=== PATIENT | female | born 1935 | race Caucasian/White ===

== ENCOUNTER 2017-11-01 12:52 | Observation (INO) ==
[2017-11-01] MEDS ORDERED: 0.9 % Sodium Chloride 250 ML IVC ONE (13:35)
--- NOTE | 2017-11-01 13:35 | Emergency Department Note ---
Disposition Clinical Impression: UTI (urinary tract infection), Hypokalemia Disposition: Admitted As Inpatient Condition: Fair Referrals: Carlyle Cheung MD [Primary Care Provider] - Forms: ED Satisfaction Letter Headache HPI - General Chief Complaint: ED Headache Stated Complaint: Headache, fatigue Time Seen by Provider: 11/01/17 12:52 Source: family Mode of arrival: private vehicle Limitations: no limitations Nursing Notes Reviewed: Yes Vital Signs Reviewed: Yes - History of Present Illness HPI Narrative: Patient was brought in via private car, with complaints of headache or lethargy weakness. Patient here in the emergency room and was able to follow my commands , but has been not talking. According to the patient's daughter patient does not have headaches, and she was concerned the patient may have had a stroke. Patient apparently has a caregiver, who checks her blood pressure today and her pulse, and reported to the patient's daughter that she thought that the patient' s pulse was irregular. This was the reason the daughter was concerned the patient may have had a stroke. As to why the patient is nonverbal I am uncertain if this is related to patient being defiant, or whether there is something seriously going that I am not ascertaining. Pt Subjective Complaint: headache Onset (ago): unknown Time: 09:50 Onset description: gradual Location: frontal Pain Severity: moderate Pain Scale: 5 Quality: throbbing - Related Data Home Medications Medication Instructions Recorded Confirmed Bisoprolol/HCTZ 2.5/6.25 [Ziac] 1 each PO 1-2XD 05/04/15 11/01/17 Levothyroxine [Synthroid] 88 mcg PO 0630 05/04/15 11/01/17 Lisinopril [Zestril] 40 mg PO DAILY 05/04/15 11/01/17 Paroxetine [Paxil] 20 mg PO DAILY 05/04/15 11/01/17 Pravastatin Sodium [Pravachol] 20 mg PO DAILY 05/04/15 11/01/17 Aspirin [Lo-Dose Aspirin EC] 81 mg PO DAILY 11/01/17 11/01/17 Allergies Allergy/AdvReac Type Severity Reaction Status Date / Time Sulfa (Sulfonamide Allergy Rash Verified 11/01/17 12:55 Antibiotics) Limitations: ROS unobtainable due to patients medical condition (Patient is not answering questions, history is obtained from her daughter) Headache PMH - Past Medical History Medical history: Reports: hyperlipidemia, hypertension, thyroid disease, TIA, other Female Surgical History: Reports: appendectomy, cholecystectomy, hysterectomy ( One ovary removed), other (Mastectomy, left nephrectomy) Psychiatric history: Reports: depression - Social History Smoking Status: Heavy tobacco smoker Alcohol use: Reports: none Drug use: Reports: none Physical Exam - General Limitations: no limitations General appearance: in no apparent distress - Head Head exam: atraumatic, normocephalic, normal inspection - Eye Eye exam: Present: normal appearance, PERRL, EOMI - ENT ENT exam: normal exam, normal oropharynx, mucous membranes moist - Neck Neck exam: Present: normal inspection, full ROM, trachea midline - Chest Chest inspection: Present: normal inspection, symmetric chest wall rise - Respiratory Respiratory exam: Present: normal lung sounds bilaterally - Cardiovascular Cardiovascular exam: Present: regular rate, normal rhythm, normal heart sounds - Abdominal Exam Abdominal exam: Present: soft, Non-Tender. Absent: tenderness, distention, guarding, rebound, rigidity - Extremities Exam Extremities exam: Present: normal inspection, full ROM. Absent: tenderness, pedal edema - Expanded Lower Extremity Exam Hip/Pelvis exam: Present: normal inspection, full ROM Upper leg exam: Present: normal inspection, full ROM Knee exam: Present: normal inspection, full ROM Lower leg exam: Present: normal inspection, full ROM Ankle exam: Present: normal inspection, full ROM Foot/toe exam: Present: normal inspection, full ROM Neurovascular/Tendon exam: Absent: motor deficit, sensory deficit, tendon deficit - Back Exam Back exam: Present: normal inspection, full ROM. Absent: tenderness - Neurological Exam Neurological exam: Present: alert, CN II-XII intact - Psychiatric Psychiatric exam: Present: depressed, other (Patient is non-talkative) - Skin Skin exam: Present: warm, dry Course Vital Signs Temperature 98.2 F 11/01/17 12:57 Pulse Rate 73 11/01/17 12:57 Respiratory Rate 18 11/01/17 12:57 Blood Pressure 101/70 11/01/17 12:57 O2 Sat by Pulse Oximetry 93 11/01/17 12:57 Temperature 98.2 F 11/01/17 12:57 Pulse Rate 66 11/01/17 14:16 Respiratory Rate 16 11/01/17 14:16 Blood Pressure 121/67 11/01/17 14:16 O2 Sat by Pulse Oximetry 94 11/01/17 14:16 Oxygen Delivery Oxygen Delivery Nasal Cannula Headache - Differential Diagnosis Differential Diagnosis: Likely: migraine, tension headache, sinusitis - Medical Records Medical records reviewed: Yes I reviewed the patient's medical records. - Lab Data Result diagrams: 11/01/17 13:35 11/01/17 13:35 Lab Results 11/01/17 11/01/17 11/01/17 Range/Units 13:35 13:35 13:35 WBC 6.1 (4.3-11.1) K/mcL RBC 4.41 (3.82-4.97) M/mcL Hgb 14.0 (11.5-15.4) g/dL Hct 41.8 (35.3-44.9) % MCV 94.8 (83.0-100.0) fL MCH 31.7 (28.0-33.3) pg MCHC 33.5 (31.6-35.5) g/dL RDW 13.6 (11.5-14.5) % Plt Count 200 (140-400) K/mcL MPV 9.8 (9.4-12.4) fL Immature Gran % 0.3 (0-4) % Seg Neutrophils % 58.9 % Lymphocytes % 24.1 % Monocytes % 12.4 % Eosinophils % 3.6 % Basophils % 0.7 % Neutrophils # 3.6 (1.6-8.9) K/mcL Lymphocytes # 1.5 (0.6-4.6) K/mcL Monocytes # 0.8 (0.0-1.3) K/mcL Eosinophils # 0.2 (0.0-0.6) K/mcL Basophils # 0.0 (0.0-0.2) K/mcL PT 13.0 H (9.4-12.1) Seconds INR 1.2 APTT 33.6 (26.0-36.0) Seconds Sodium 137 (136-145) mEq/L Potassium 3.0 L (3.5-5.1) mEq/L Chloride 98 (98-107) mEq/L Carbon Dioxide 31 H (23-29) mEq/L BUN 14 (8-23) mg/dL Creatinine 1.09 (0.60-1.20) mg/dL Est GFR ( Amer) 58 L (> 60) Est GFR (Non-Af Amer) 48 L (> 60) BUN/Creatinine Ratio 13 (6-26) Glucose 103 (70-105) mg/dL Calculated Osmolality 285 (280-300) Calcium 9.4 (8.6-10.3) mg/dL Total Bilirubin 0.5 (0.3-1.0) mg/dL AST 17 (13-39) Units/L ALT 12 (7-52) Units/L Alkaline Phosphatase 95 (34-104) Units/L Ammonia (16-53) mcmol/L Troponin I (< 0.04) ng/mL Serum Total Protein 6.4 (6.4-8.9) g/dL Albumin 3.6 (3.5-5.7) g/dL Globulin 2.8 (2.4-3.5) g/dL Albumin/Globulin Ratio 1.3 (1.1-2.2) Urine Color (Yellow) Urine Clarity (Clear) Urine pH (5.0-8.0) pH Units Ur Specific [place] (1.010-1.025) Urine Protein (Neg-Trace) mg/dL Urine Glucose (UA) (Normal) mg/dL Urine Ketones (Negative) mg/dL Urine Blood (Negative) Urine Nitrite (Negative) Urine Bilirubin (Negative) Urine Urobilinogen (Normal) mg/dL Ur Leukocyte Esterase (Negative) Urine Microscopic RBC (0-3) per hpf Urine Microscopic WBC (0-3) per hpf Ur Squamous Epith Cells (None-Few) per lpf Urine Bacteria (None-Few) per hpf 11/01/17 11/01/17 11/01/17 Range/Units 13:35 13:35 14:12 WBC (4.3-11.1) K/mcL RBC (3.82-4.97) M/mcL Hgb (11.5-15.4) g/dL Hct (35.3-44.9) % MCV (83.0-100.0) fL MCH (28.0-33.3) pg MCHC (31.6-35.5) g/dL RDW (11.5-14.5) % Plt Count (140-400) K/mcL MPV (9.4-12.4) fL Immature Gran % (0-4) % Seg Neutrophils % % Lymphocytes % % Monocytes % % Eosinophils % % Basophils % % Neutrophils # (1.6-8.9) K/mcL Lymphocytes # (0.6-4.6) K/mcL Monocytes # (0.0-1.3) K/mcL Eosinophils # (0.0-0.6) K/mcL Basophils # (0.0-0.2) K/mcL PT (9.4-12.1) Seconds INR APTT (26.0-36.0) Seconds Sodium (136-145) mEq/L Potassium (3.5-5.1) mEq/L Chloride (98-107) mEq/L Carbon Dioxide (23-29) mEq/L BUN (8-23) mg/dL Creatinine (0.60-1.20) mg/dL Est GFR ( Amer) (> 60) Est GFR (Non-Af Amer) (> 60) BUN/Creatinine Ratio (6-26) Glucose (70-105) mg/dL Calculated Osmolality (280-300) Calcium (8.6-10.3) mg/dL Total Bilirubin (0.3-1.0) mg/dL AST (13-39) Units/L ALT (7-52) Units/L Alkaline Phosphatase (34-104) Units/L Ammonia 33 (16-53) mcmol/L Troponin I < 0.03 (< 0.04) ng/mL Serum Total Protein (6.4-8.9) g/dL Albumin (3.5-5.7) g/dL Globulin (2.4-3.5) g/dL Albumin/Globulin Ratio (1.1-2.2) Urine Color Yellow (Yellow) Urine Clarity Cloudy A (Clear) Urine pH 6.0 (5.0-8.0) pH Units Ur Specific [place] 1.015 (1.010-1.025) Urine Protein Negative (Neg-Trace) mg/dL Urine Glucose (UA) Normal (Normal) mg/dL Urine Ketones Negative (Negative) mg/dL Urine Blood Small H (Negative) Urine Nitrite Positive A (Negative) Urine Bilirubin Negative (Negative) Urine Urobilinogen 2.0 H (Normal) mg/dL Ur Leukocyte Esterase Moderate H (Negative) Urine Microscopic RBC 3-5 H (0-3) per hpf Urine Microscopic WBC 5-15 H (0-3) per hpf Ur Squamous Epith Cells Few (None-Few) per lpf Urine Bacteria Many H (None-Few) per hpf - Radiology Data Radiology results reviewed: Yes I reviewed the patient's radiology results. - EKG Data EKG attestation: Yes I reviewed and interpreted this EKG. EKG results narrative: EKG is a normal sinus rhythm EKG, patient has left ventricular hypertrophy, and what appears to be T-wave inversions in leads V3 all the way down through V6. I suspect this is more related to left ventricular heart strain. There is no change in comparison to her old EKG, of 522014 EKG shows normal: sinus rhythm, axis Rate: normal Rhythm: NSR [place]/QRS: left axis deviation Voltage: increased voltage throughout, c/w LVH
[2017-11-01 13:41] LABS: Basophils % 0.7 %; Eosinophils # 0.2 K/mcL (0.0-0.6); Eosinophils % 3.6 %; Hematocrit 41.8 % (35.3-44.9); Immature Granulocytes % 0.3 % (0-4); Lymphocytes # 1.5 K/mcL (0.6-4.6); Lymphocytes % 24.1 %; Mean Corpuscular HGB Conc 33.5 g/dL (31.6-35.5); Mean Corpuscular Hemoglobin 31.7 pg (28.0-33.3); Mean Corpuscular Volume 94.8 fL (83.0-100.0); Mean Platelet Volume 9.8 fL (9.4-12.4); Monocytes # 0.8 K/mcL (0.0-1.3); Monocytes % 12.4 %; Neutrophils # 3.6 K/mcL (1.6-8.9); Platelet Count 200 K/mcL (140-400); Red Blood Count 4.41 M/mcL (3.82-4.97); Red Cell Distribution Width 13.6 % (11.5-14.5); Segmented Neutrophils % 58.9 %
[2017-11-01 13:47] LABS: INR 1.2
[2017-11-01 13:49] LABS: Activated Partial Thrombo Time 33.6 Seconds (26.0-36.0)
[2017-11-01 13:58] LABS: Albumin 3.6 g/dL (3.5-5.7); Albumin/Globulin Ratio 1.3 (1.1-2.2); Bilirubin,Total 0.5 mg/dL (0.3-1.0); Calcium 9.4 mg/dL (8.6-10.3); Globulin 2.8 g/dL (2.4-3.5); Total Protein 6.4 g/dL (6.4-8.9)
[2017-11-01 14:16] LABS: Bilirubin,Urine Negative (Negative); Blood,Urine Small (Negative); Clarity,Urine Cloudy (Clear); Color,Urine Yellow (Yellow); Glucose,Urine (UA) Normal (Normal); Ketones,Urine Negative (Negative); Leukocyte Esterase,Urine Moderate (Negative); Nitrite,Urine Positive (Negative); Protein,Urine Negative (Neg-Trace); Specific Gravity,Urine 1.015 (1.010-1.025)
[2017-11-01 14:24] LABS: Bacteria,Urine Many per hpf (None-Few); Squamous Epithelial Cell,Urine Few per lpf (None-Few)
[2017-11-01] MEDS ORDERED: 0.9 % Sodium Chloride 500 ML IVC SCH ×2 (14:45→15:49)
[2017-11-01] MEDS ORDERED: cefTRIAXone 2,000 MG in Water for inj. (sterile) 20 ML 20 ML IVPB SCH (15:00)
[2017-11-01] MEDS ORDERED: Naloxone 0.4 MG/ML INJ IVP PRN (15:49)
--- NOTE | 2017-11-01 19:10 | Internal Med History&Physical ---
Date of Encounter: 11/01/17 Time of Encounter: 18:30 Assessment and Plan (1) Headache Current visit: Yes Status: Acute Now resolved. Head CT in emergency room was unremarkable. Will observe without further workup at this time. Qualifiers: Headache type: unspecified Headache chronicity pattern: unspecified pattern Intractability: not intractable Qualified Code(s): R51 - Headache (2) UTI (urinary tract infection) Current visit: Yes Status: Acute She has been started on Rocephin. Will add lactobacillus. Qualifiers: Urinary tract infection type: site unspecified Hematuria presence: with hematuria Qualified Code(s): N39.0 - Urinary tract infection, site not specified; R31.9 - Hematuria, unspecified; R31.9 - Hematuria, unspecified (3) Hypokalemia Current visit: Yes Status: Acute She has been given supplement potassium IV through emergency room. Will recheck labs tonight. Internal Medicine - H&P: HPI Chief complaint: Headache Admitted From: Emergency Dept Plans for Post Hospital Care: Home History of present illness: Ms. Richards is a 82 year old female who was brought to emergency room after she awakened from a nap approximately 11 AM and complained of severe headache. She had normal vital signs and there was no neurologic deficit noted by home care personnel. Her PCP Dr. Cheung was contacted and he recommended she go to emergency room. She was evaluated in emergency room and found to have hypokalemia and possible UTI. She was admitted to [facility] floor for ongoing care needs. She has dementia and cannot supply history. Her family reports she has had "mini strokes" in the past most recently approximately 2013. She takes 81 mg aspirin daily. She has been diagnosed with vascular dementia. She has not had seizures or other large distribution strokes. Past Med Surg Social Fam HX - Past Medical History Medical history: hyperlipidemia, hypertension, thyroid disease, TIA, other Psychiatric history: depression - Past Surgical History Surgical History: appendectomy, cholecystectomy, hysterectomy, other - Social History Smoking Status: Heavy tobacco smoker Packs per day: 1 Smokeless Tobacco Status: No Alcohol use: none Drug use: none Internal Medicine - H&P: Meds Bisoprolol/HCTZ 2.5/6.25 [Ziac] 1 each PO 1-2XD 05/04/15 [History] Levothyroxine [Synthroid] 88 mcg PO 0630 05/04/15 [History] Lisinopril [Zestril] 40 mg PO DAILY 05/04/15 [History] Paroxetine [Paxil] 20 mg PO DAILY 05/04/15 [History] Pravastatin Sodium [Pravachol] 20 mg PO DAILY 05/04/15 [History] Aspirin [Lo-Dose Aspirin EC] 81 mg PO DAILY 11/01/17 [History] 3 Allergy/AdvReac Type Severity Reaction Status Date / Time Sulfa (Sulfonamide Allergy Rash Verified 11/01/17 12:55 Antibiotics) All Systems PM: A 10-system review of systems was performed and is negative for pertinent findings except as documented above in the HPI. Review of systems: Review of systems is obtained from family members since the patient cannot give additional history. Gen.: Her weight has been stable the past months Cardiovascular: She has history of hypertension but no AK heart failure angina DVT or pulmonary embolus Respiratory: She smoked since approximately age 20 up to 2 packs per day. She has not been diagnosed with COPD by PFTs. She does not use home oxygen. GI: She has had cholecystectomy and appendectomy. 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 Family was unaware she had CK D. There is no history of kidney or bladder disorders otherwise Neurologic: As per history of present illness Endocrine: She has hypothyroidism and hyperlipidemia but no diabetes. Hematology/oncology: She was diagnosed with breast cancer 2005 and had curative left mastectomy. She was diagnosed with ovarian cancer 2014 and had bilateral oophorectomy followed by XRT. She had previously had KIANA. She has not had other malignancies or anemia documented. Psychiatric: She has anxiety but no significant depression or other mental health issues [place] skeletal: She has DJD but no known gout or other bone joint or muscle disorders. - Constitutional Vitals: Temp Pulse Resp BP Pulse Ox 98.6 F 64 18 109/58 97 11/01/17 15:42 11/01/17 15:42 11/01/17 15:42 11/01/17 15:42 11/01/17 15:42 Exam: Gen.: She is a well-developed well-nourished female lying comfortably in bed who appears in no acute distress at present time. She denies headache or dyspnea but does complain of slight pain in her neck. HEENT: Head is atraumatic and normal cephalic. Eyes: EOMI. There is no scleral icterus. Mouth: Mucosa is moist. Neck: Supple and nontender. There is no thyromegaly or adenopathy noted. Heart: Regular without murmurs gallops or ectopics Lungs: No wheezes or crackles are heard. Abdomen: Soft and nontender. No masses or guarding are noted. Extremities: There is no cyanosis edema or clubbing noted. Dorsalis pedis and posttibial pulses are trace palpable bilaterally. She has mild DJD changes of her hands. Neurologic: Mental status: She does not answer questions. She follows a few commands. Cranial nerves: Smile is symmetric. Forehead wrinkles bilaterally. Tongue protrudes midline. EOMI. Motor: There is no pronator drift. Cerebellar : Finger to nose is intact bilaterally. Skin: Warm and dry Internal Med - H&P Results - Labs CBC & Chem 7: 11/01/17 13:35 11/01/17 13:35
--- NOTE | 2017-11-01 21:08 | Electrocardiograph Report ---
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
[2017-11-02 03:31] LABS: BUN/Creatinine Ratio 13 (6-26); Blood Urea Nitrogen 13 mg/dL (8-23); Calcium 8.8 mg/dL (8.6-10.3); Carbon Dioxide 31 mEq/L (23-29); Chloride 100 mEq/L (98-107); Glucose 139 mg/dL (70-105); Magnesium 1.7 mg/dL (1.6-2.6); Osmolality,Calculated 286 (280-300); Potassium 3.2 mEq/L (3.5-5.1); Sodium 137 mEq/L (136-145); eGFR For African Americans > 60 (> 60); eGFR For Non-African Americans 54 (> 60)
[2017-11-02 07:12] VITALS: BP 97/59
[2017-11-02] MEDS ORDERED: Aspirin Enteric Coated 81 MG Tablet PO SCH (09:00)
[2017-11-02] MEDS ORDERED: Bisoprolol/HCTZ 10/6.25 TABLET PO SCH (09:00)
[2017-11-02] MEDS ORDERED: Lisinopril 20 MG TABLET PO SCH (09:00)
--- NOTE | 2017-11-02 09:15 | Discharge Summary ---
Date of Encounter: 11/02/17 Time of Encounter: 09:00 - Discharge Diagnosis (1) Headache Priority: Primary Status: Resolved Qualifiers: Headache type: unspecified Headache chronicity pattern: unspecified pattern Intractability: not intractable Qualified Code(s): R51 - Headache (2) UTI (urinary tract infection) Priority: Secondary Status: Acute Qualifiers: Urinary tract infection type: site unspecified Hematuria presence: with hematuria Qualified Code(s): N39.0 - Urinary tract infection, site not specified; R31.9 - Hematuria, unspecified; R31.9 - Hematuria, unspecified (3) Hypokalemia Priority: Secondary Status: Acute Hospital course: Ms. Richards is a 82 year old female who was brought to emergency room after she awakened from a nap approximately 11 AM and complained of severe headache. She had normal vital signs and there was no neurologic deficit noted by home care personnel. Her PCP Dr. Cheung was contacted and he recommended she go to emergency room. She was evaluated in emergency room and found to have hypokalemia and possible UTI. She was admitted to [facility] for ongoing care needs. Initial orders were written by the emergency room physician. I saw her the afternoon of November 01 and performed a history and physical. By the time I saw her she stated her headache had resolved. Head CT in emergency room was unremarkable. No further workup was done and she remained pain-free. She was started on Rocephin empirically for UTI. Lactobacillus was added. Urine culture report was pending at time of discharge. She will be discharged on Ceftin 500 mg twice a day with lactobacillus as empiric treatment. Dr. Cheung can follow-up on this. Supplemental potassium was given and her level levy to 3.2 by day of discharge. She will be given additional potassium prior to discharge and continue on oral potassium supplement at home. She will follow with her PCP Dr. Carlyle Cheung within 1 week. - Time Spent with Patient Total time spent providing and/or coordinating discharge services: - Discharge Medications Prescriptions: Cefuroxime PO [Ceftin] 500 mg PO Q12HR #6 tablet Lactobacillus [Culturelle] 1 each PO BID #6 cap.sprink Potassium Chloride 10 meq PO DAILY #30 tab.er.prt Home Medications: Levothyroxine [Synthroid] 88 mcg PO 0630 05/04/15 [History] Lisinopril [Zestril] 40 mg PO DAILY 05/04/15 [History] Paroxetine [Paxil] 20 mg PO DAILY 05/04/15 [History] Pravastatin Sodium [Pravachol] 20 mg PO DAILY 05/04/15 [History] Aspirin [Lo-Dose Aspirin EC] 81 mg PO DAILY 11/01/17 [History] Bisoprolol/HCTZ 2.5/6.25 [Ziac 2.5/6.25] 1 each PO DAILY #0 11/02/17 [Rx] Cefuroxime PO [Ceftin] 500 mg PO Q12HR #6 tablet 11/02/17 [Rx] Lactobacillus [Culturelle] 1 each PO BID #6 cap.sprink 11/02/17 [Rx] Potassium Chloride 10 meq PO DAILY #30 tab.er.prt 11/02/17 [Rx] Allergies/Adverse Reactions: 3 Allergy/AdvReac Type Severity Reaction Status Date / Time Sulfa (Sulfonamide Allergy Rash Verified 11/01/17 12:55 Antibiotics) Date of admission: 11/01/17 14:53 Primary care physician: Carlyle Cheung MD Consults: 11/01/17 17:03 Consult to Industrial Conveyor Belt Repairer [CONS] Routine Reason for SW Consult: [facility] 20/03 care current - Constitutional Vitals: Temp Pulse Resp BP Pulse Ox 98.4 F 69 18 97/59 91 11/02/17 07:11 11/02/17 07:11 11/02/17 07:11 11/02/17 07:11 11/02/17 07:11 - Patient Status Disposition: Home, Self-Care Condition: Fair Overall status at discharge: patient is progressing back to baseline - Discharge Instructions Follow Up With: Carlyle Cheung MD [Primary Care Provider] - 1 week - Diet and Activity Activity: resume usual activities as tolerated Diet: advance to your usual diet
--- NOTE | 2017-11-02 09:57 | Physician Discharge Referral ---
Home Health/Hosp Referral Info Transfer to: Home Health Attending Provider: Lang Provider in Charge Post Discharge: PCP (Carlyle Cheung M.D.) - Diagnosis (1) Headache Priority: Primary Status: Resolved (2) UTI (urinary tract infection) Priority: Secondary Status: Acute (3) Hypokalemia Priority: Secondary Status: Acute - Respiratory Orders Smoking Cessation: Smoking cessation has been advised. For more information, call the [place] Tobacco Quit Line at 8-304-DNWQ-NOW. - Activity Activity Orders: Ambulate - Services Needed Following services are medically necessary services: Nursing, Home Health Aide, Physical Therapy, Occupational Therapy - Transfer Medications Prescriptions: Cefuroxime PO [Ceftin] 500 mg PO Q12HR #6 tablet Lactobacillus [Culturelle] 1 each PO BID #6 cap.sprink Potassium Chloride 10 meq PO DAILY #30 tab.er.prt Home Medications: Levothyroxine [Synthroid] 88 mcg PO 0630 05/04/15 [History] Lisinopril [Zestril] 40 mg PO DAILY 05/04/15 [History] Paroxetine [Paxil] 20 mg PO DAILY 05/04/15 [History] Pravastatin Sodium [Pravachol] 20 mg PO DAILY 05/04/15 [History] Aspirin [Lo-Dose Aspirin EC] 81 mg PO DAILY 11/01/17 [History] Bisoprolol/HCTZ 2.5/6.25 [Ziac 2.5/6.25] 1 each PO DAILY #0 11/02/17 [Rx] Cefuroxime PO [Ceftin] 500 mg PO Q12HR #6 tablet 11/02/17 [Rx] Lactobacillus [Culturelle] 1 each PO BID #6 cap.sprink 11/02/17 [Rx] Potassium Chloride 10 meq PO DAILY #30 tab.er.prt 11/02/17 [Rx] Allergies/Adverse Reactions: 3 Allergy/AdvReac Type Severity Reaction Status Date / Time Sulfa (Sulfonamide Allergy Rash Verified 11/01/17 12:55 Antibiotics) Certification: Further, I certify that my clinical findings support that this patient is homebound (i.e. absences from home require considerable and taxing effort and are for medical reasons or restoration services or infrequently or short duration when for other reasons) because: Homebound Reason: Leaving home requires considerable and taxing effort due to condition (Dementia, DJD) Attestation: My signature below is to certify that this patient is under my care and that I, or nurse practitioner, or a physician's assistant branch manager working with me, has a face-to -face encounter with this patient.
[2017-11-02] MEDS ORDERED: cefTRIAXone 2,000 MG in Water for inj. (sterile) 20 ML IVP SCH (13:00)
== END 2017-11-02 10:30 | disposition home health service (06) ==
LOC: EMEROOPIK 12:52 → INPPIK 12:52
PROVIDERS: ADMIT Internal Medicine; ATTEND Internal Medicine

== ENCOUNTER 2018-07-16 16:32 | Observation (INO) ==
[2018-07-16] MEDS ORDERED: methylPREDNISolone 125 MG/2 ML VIAL IVP ONE (16:47)
[2018-07-16] MEDS ORDERED: Ipratropium/Albuterol Neb 3 ML IH ONE (16:47)
--- NOTE | 2018-07-16 17:16 | Emergency Department Note ---
Disposition Clinical Impression: Palpitations, Elevated d-dimer Pneumonia Qualifiers: Pneumonia type: due to unspecified organism Laterality: right Lung location: lower lobe of lung Qualified Code(s): J18.1 - Lobar pneumonia, unspecified organism Disposition: Admitted As Inpatient Condition: Good Instructions: Palpitations (ED) Time of Disposition: 17:51 (Acccepted by Dr Laughlin) Weakness HPI - General Stated complaint: LOW HEART RATE, COLD SWEATS Time Seen by Provider: 07/16/18 16:35 Source: patient Mode of arrival: ambulatory Nursing Notes Reviewed: Yes Vital Signs Reviewed: Yes - History of Present Illness HPI Narrative: Patient is a pleasant 83 yo F with past medical history significant for HTN, CA, COPD, CAD, Dyslipidemia and COPD who is presenting to [facility] Emergency Room with a chief complaint off possible low HR. Her home nurse noticed flactuating of her heart rate between 110 to 42. Pt remained asymptomatic during that event. She takes clonidine for BP. Patient currently has no symptoms but states she occasionally get dizzy. denies any fever, chills or night sweats. Pt also denies any eye pain or visual disturbances. There is no sore throat, nasal drainages or facial congestion. There is no chest pain, palpitations or racing heart. Pt also denies any shortness of breath, cough or chest congestion. There is no abdominal pain, nausea, vomiting or diarrhea. There is no urgency, frequency or dysuria. There is no muskulo-skeletal pain, arthralgia or back pain. Patient also denies any rash, edema or pruritus. There is no neurological manifestations, no headache, no vertigo or weakness. The patient also denies any anxiety, depression, hallucinations and has no homicidal or suicidal ideations. There is no polyuria, polydipsia or recent weight change. There is no easy bruising or bleeding. Review of other systems is otherwise negative except above. Pt Subjective Complaint: other - Related Data Home Medications Medication Instructions Recorded Confirmed Levothyroxine [Synthroid] 88 mcg PO 0630 05/04/15 12/02/17 Paroxetine [Paxil] 20 mg PO DAILY 05/04/15 12/02/17 Pravastatin Sodium [Pravachol] 20 mg PO DAILY 05/04/15 12/02/17 Aspirin [Lo-Dose Aspirin EC] 81 mg PO DAILY 11/01/17 12/02/17 Cyanocobalamin (Vitamin B-12) 1,000 mcg PO DAILY 12/02/17 12/02/17 [B-12] cloNIDine HCl [Clonidine HCl] 0.2 mg PO DAILY 07/16/18 07/16/18 Previous Rx's Medication Instructions Recorded Potassium Chloride 10 meq PO DAILY #30 tab.er.prt 11/02/17 Benzonatate [Tessalon] 200 mg PO TID PRN #9 capsule 12/31/17 predniSONE [Prednisone] 50 mg PO DAILY #4 tablet 12/31/17 Allergies Allergy/AdvReac Type Severity Reaction Status Date / Time Sulfa (Sulfonamide Allergy Rash Verified 12/30/17 22:14 Antibiotics) All systems ED: reviewed and negative except as stated. Review of Systems: As Per HPI Constitutional: Denies: fever, chills, weakness, weight change Eyes: Denies: eye pain, eye discharge, vision change ENT ED: Denies: ear pain, throat pain, dental pain, hearing loss, epistaxis, congestion, dysphagia Cardiovascular: Reports: palpitations. Denies: chest pain, dyspnea on exertion, edema, syncope Respiratory: Denies: cough, dyspnea, wheezes, hemoptysis, stridor Gastrointestinal: Denies: abdominal pain, nausea, vomiting, diarrhea, constipation, hematemesis, melena, hematochezia Genitourinary: Denies: dysuria, frequency, hematuria, discharge Musculoskeletal: Denies: back pain, neck pain, arthralgia, myalgia Integumentary: Denies: rash, abrasion, lesions Neurological: Denies: headache, weakness, numbness, paresthesias, confusion, abnormal gait, vertigo Psychiatric: Denies: anxiety, depression, suicidal thoughts, homicidal thoughts, auditory hallucinations, visual hallucinations Endocrine: Denies: fatigue Hematological/Lymphatic: Denies: easy bleeding, easy bruising Allergic/Immunologic: Denies: facial swelling, urticaria Past Medical History - Past Medical History Medical history: Reports: cancer, COPD, dementia, hyperlipidemia, hypertension, renal disease, thyroid disease, TIA, other Surgical history: Reports: appendectomy, breast surgery (Left mastectomy), cholecystectomy, hysterectomy, other (Nephrectomy) Psychiatric history: Reports: depression - Social History Smoking Status: Heavy tobacco smoker Smokeless Tobacco Status: No Alcohol use: Reports: none Drug use: Reports: none Physical Exam - General Limitations: no limitations General appearance: alert, in no apparent distress - Head Head exam: atraumatic, normocephalic, normal inspection - Eye Eye exam: Present: normal appearance, PERRL, EOMI - Expanded Eye Exam Pupils: Left: reactive - ENT ENT exam: normal exam, normal oropharynx, mucous membranes moist - Expanded ENT Exam External ear exam: Present: normal external inspection Mouth exam: Present: normal external inspection Teeth exam: Present: normal inspection Throat exam: Present: normal inspection - Neck Neck exam: Present: normal inspection, full ROM, trachea midline - Chest Chest inspection: Present: normal inspection, symmetric chest wall rise - Respiratory Respiratory exam: Present: normal lung sounds bilaterally, wheezes, other (Diminshed air entry post) - Cardiovascular Cardiovascular exam: Present: regular rate, normal rhythm, normal heart sounds - Abdominal Exam Abdominal exam: Present: soft, Non-Tender. Absent: tenderness, distention, guarding, rebound, rigidity - Extremities Exam Extremities exam: Present: normal inspection, full ROM. Absent: tenderness, pedal edema - Expanded Upper Extremity Exam Shoulder exam: Present: normal inspection, full ROM Arm exam: Present: normal inspection, full ROM Elbow exam: Present: normal inspection, full ROM Forearm/Wrist exam: Present: normal inspection, full ROM Hand exam: Present: normal inspection, full ROM Vascular exam: Normal: capillary refill, radial pulse - Expanded Lower Extremity Exam Hip/Pelvis exam: Present: normal inspection, full ROM Upper leg exam: Present: normal inspection, full ROM Knee exam: Present: normal inspection, full ROM Lower leg exam: Present: normal inspection, full ROM Ankle exam: Present: normal inspection, full ROM Foot/toe exam: Present: normal inspection, full ROM Neurovascular/Tendon exam: Absent: motor deficit, sensory deficit, tendon deficit - Back Exam Back exam: Present: normal inspection, full ROM. Absent: tenderness - Neurological Exam Neurological exam: Present: alert, oriented X3 - Expanded Neurological Exam Patient oriented to: Present: person, place, time Coma Scale Eye Opening: Spontaneous Coma Scale Motor Response: Obeys Commands Coma Scale Verbal Response: Oriented Coma Scale Total: 15 - Psychiatric Psychiatric exam: Present: normal affect, normal mood - Skin Skin exam: Present: warm, dry, intact, normal color Weakness - MDM Narrative Medical decision making narrative: Pt has an elevated D Dimer with normal level of borderline pulse Ox has long standing COPD and continues to smoke. Her HR in 80s and pulse Ox 92. In the past her D Dimer was 900 and currently 1000 so has no higher suspicion for PE but will need to be admitted for arrhythmia monitoring. - Differential Diagnosis Differential Diagnosis: Likely: dehydration, medication effect, metabolic, thyroid/endocrine disorder - Medical Records Medical records reviewed: Yes I reviewed the patient's medical records. - Lab Data Lab results reviewed: Yes I reviewed the patient's lab results. - Radiology Data Radiology results reviewed: Yes I reviewed the patient's radiology results. XR/XR chest 1V portable IMPRESSION: Right basilar atelectasis or pneumonia. New elevation of the right hemidiaphragm. Follow-up to resolution recommended to ensure the absence of an underlying pulmonary nodule. - EKG Data EKG attestation: Yes I reviewed and interpreted this EKG. EKG shows normal: sinus rhythm Rhythm: PAC's [place]/QRS: normal
[2018-07-16 17:17] LABS: Troponin I < 0.03 ng/mL (< 0.04)
[2018-07-16 17:17] LABS: Basophils % 0.6 %; Eosinophils # 0.2 K/mcL (0.0-0.6); Eosinophils % 3.2 %; Hematocrit 43.1 % (35.3-44.9); Hemoglobin 14.3 g/dL (11.5-15.4); Immature Granulocytes % 0.3 % (0-4); Lymphocytes # 1.6 K/mcL (0.6-4.6); Lymphocytes % 24.6 %; Mean Corpuscular HGB Conc 33.2 g/dL (31.6-35.5); Mean Corpuscular Hemoglobin 31.7 pg (28.0-33.3); Mean Corpuscular Volume 95.6 fL (83.0-100.0); Mean Platelet Volume 9.4 fL (9.4-12.4); Monocytes # 0.7 K/mcL (0.0-1.3); Platelet Count 185 K/mcL (140-400); Red Blood Count 4.51 M/mcL (3.82-4.97); Red Cell Distribution Width 13.8 % (11.5-14.5); Segmented Neutrophils % 61.3 %
[2018-07-16 17:18] LABS: Alanine Aminotransferase 14 Units/L (7-52); Albumin 3.8 g/dL (3.5-5.7); Albumin/Globulin Ratio 1.2 (1.1-2.2); Alkaline Phosphatase 97 Units/L (34-104); Aspartate Amino Transferase 17 Units/L (13-39); BUN/Creatinine Ratio 13 (6-26); Bilirubin,Total 0.5 mg/dL (0.3-1.0); Blood Urea Nitrogen 15 mg/dL (8-23); Calcium 9.6 mg/dL (8.6-10.3); Carbon Dioxide 31 mEq/L (23-29); Chloride 99 mEq/L (98-107); Globulin 3.2 g/dL (2.4-3.5); Glucose 108 mg/dL (70-105); Magnesium 1.6 mg/dL (1.6-2.6); Osmolality,Calculated 287 (280-300); Potassium 3.8 mEq/L (3.5-5.1); Sodium 138 mEq/L (136-145); eGFR For Non-African Americans 43 (> 60)
[2018-07-16 17:24] LABS: INR 1.2
[2018-07-16 17:45] LABS: Bilirubin,Urine Negative (Negative); Blood,Urine Negative (Negative); Clarity,Urine Cloudy (Clear); Color,Urine Yellow (Yellow); Glucose,Urine (UA) Normal (Normal); Ketones,Urine Negative (Negative); Leukocyte Esterase,Urine Negative (Negative); Nitrite,Urine Positive (Negative); Protein,Urine Negative (Neg-Trace); Urobilinogen,Urine Normal (Normal)
[2018-07-16 17:52] LABS: Bacteria,Urine Many per hpf (None-Few); RBC,Urine 0-3 per hpf (0-3); Squamous Epithelial Cell,Urine Few per lpf (None-Few); WBC,Urine 0-3 per hpf (0-3)
[2018-07-16] MEDS ORDERED: Naloxone 0.4 MG/ML INJ IVP PRN ×3 (18:03→18:22)
[2018-07-16] MEDS ORDERED: cefTRIAXone 2,000 MG in Water for inj. (sterile) 20 ML 20 ML IVP ONE ×2 (18:07→18:22)
[2018-07-16] MEDS ORDERED: Benzonatate 100 MG CAPSULE PO PRN (18:22)
[2018-07-17 05:34] LABS: Basophils % 0.1 %; Hemoglobin 15.4 g/dL (11.5-15.4); Immature Granulocytes % 0.3 % (0-4); Lymphocytes # 0.8 K/mcL (0.6-4.6); Lymphocytes % 8.6 %; Mean Corpuscular HGB Conc 32.8 g/dL (31.6-35.5); Mean Corpuscular Hemoglobin 31.2 pg (28.0-33.3); Mean Corpuscular Volume 95.1 fL (83.0-100.0); Mean Platelet Volume 9.8 fL (9.4-12.4); Monocytes # 0.1 K/mcL (0.0-1.3); Monocytes % 0.9 %; Neutrophils # 7.9 K/mcL (1.6-8.9); Platelet Count 215 K/mcL (140-400); Red Blood Count 4.94 M/mcL (3.82-4.97); Red Cell Distribution Width 13.6 % (11.5-14.5); Segmented Neutrophils % 90.1 %
[2018-07-17 05:46] LABS: INR 1.1; Prothrombin Time 12.4 Seconds (9.4-12.1)
[2018-07-17 05:49] LABS: Activated Partial Thrombo Time 34.7 Seconds (26.0-36.0)
[2018-07-17 05:56] LABS: Calcium 9.6 mg/dL (8.6-10.3); Chol/HDL Ratio 3.1 (0-4.9); Magnesium 1.6 mg/dL (1.6-2.6); Potassium 3.8 mEq/L (3.5-5.1)
[2018-07-17] MEDS: Aspirin Enteric Coated 81 MG Tablet PO SCH (10:10)
--- NOTE | 2018-07-17 11:27 | Internal Med History&Physical ---
Date of Encounter: 07/17/18 Time of Encounter: 10:50 Assessment and Plan (1) Pneumonia Current visit: Yes Status: Acute She was given Rocephin in emergency room. This will be continued with lactobacillus and Zithromax. Chest CT will be done to further evaluate. Qualifiers: Pneumonia type: due to unspecified organism Laterality: right Lung location: lower lobe of lung Qualified Code(s): J18.1 - Lobar pneumonia, unspecified organism (2) COPD (chronic obstructive pulmonary disease) Current visit: Yes Status: Chronic Presumed. Order chest CT as per above. Check room air oximetry prior to discharge. I doubt she could perform PFTs satisfactorily secondary to cognitive impairment. Qualifiers: COPD type: unspecified COPD Qualified Code(s): J44.9 - Chronic obstructive pulmonary disease, unspecified (3) Hypoxemia Current visit: Yes Status: Acute Check room air oximetry prior to discharge. (4) Acquired elevated hemidiaphragm Current visit: Yes Status: Acute Order chest CT as per above. (5) PAC (premature atrial contraction) Current visit: Yes Status: Acute Asymptomatic. Observe without further workup. (6) Hypertension Current visit: Yes Status: Chronic Hold clonidine and monitor blood pressure. Qualifiers: Hypertension type: essential hypertension Qualified Code(s): I10 - Essential (primary) hypertension (7) CKD (chronic kidney disease) stage 3, GFR 30-59 ml/min Current visit: Yes Status: Acute Status post unilateral nephrectomy. Monitor renal indices. (8) Dementia Current visit: Yes Status: Chronic Monitor without medication. Qualifiers: Dementia type: vascular dementia Dementia behavioral disturbance: without behavioral disturbance Qualified Code(s): F01.50 - Vascular dementia without behavioral disturbance (9) Elevated d-dimer Current visit: Yes Status: Acute No clinical findings or history suggestive of DVT/PE. Continue aspirin 81 mg daily. Internal Medicine - H&P: HPI Chief complaint: Irregular heart rate, cold sweat Admitted From: Emergency Dept Plans for Post Hospital Care: Home History of present illness: Ms. Richards is a 83 year old female who came to emergency room after she developed intermittent cold diaphoresis the morning of admission. There was no sensation of fever. She had no complaints of pain. Home health nurse found her heart rate to be irregular ranging from 42-110/m. She was evaluated in emergency room and felt to have possible pneumonia. She was admitted to [facility] floor for ongoing care needs. She is a poor historian and cannot give reliable history because of dementia. Respiratory history per available records is significant for having smoked since age 20 up to 2 packs per day. She has not been diagnosed with COPD by PFTs. She does not use home oxygen. Family states oxygen saturations at home are occasionally noted to be as low as 88%. Past Med Surg Social Fam HX - Past Medical History Medical history: cancer, COPD, dementia, hyperlipidemia, hypertension, renal disease, thyroid disease, TIA, other Additional medical history: Breast 2005 Psychiatric history: depression - Past Surgical History Surgical History: appendectomy, breast surgery, cholecystectomy, hysterectomy, other Additional surgical history: LEFT MASTECTOMY. ABDOMINAL SURGERY (PATIENT UNABLE TO TELL WHAT TYPE. STATES I CAN'T REMEMBER.). KIDNEY REMOVED - Social History Smoking Status: Heavy tobacco smoker Smokeless Tobacco Status: No Alcohol use: none Drug use: none Internal Medicine - H&P: Meds Levothyroxine [Synthroid] 88 mcg PO 0630 05/04/15 [History] Paroxetine [Paxil] 20 mg PO DAILY 05/04/15 [History] Pravastatin Sodium [Pravachol] 20 mg PO DAILY 05/04/15 [History] Aspirin [Lo-Dose Aspirin EC] 81 mg PO DAILY 11/01/17 [History] Potassium Chloride 10 meq PO DAILY #30 tab.er.prt 11/02/17 [Rx] Cyanocobalamin (Vitamin B-12) [B-12] 1,000 mcg PO DAILY 12/02/17 [History] Benzonatate [Tessalon] 200 mg PO TID PRN #9 capsule 12/31/17 [Rx] predniSONE [Prednisone] 50 mg PO DAILY #4 tablet 12/31/17 [Rx] cloNIDine HCl [Clonidine HCl] 0.2 mg PO DAILY 07/16/18 [History] Allergy/AdvReac Type Severity Reaction Status Date / Time Sulfa (Sulfonamide Allergy Rash Verified 12/30/17 22:14 Antibiotics) All Systems PM: A 10-system review of systems was performed and is negative for pertinent findings except as documented above in the HPI. Review of systems: Review of systems from her October 2017 [facility] hospitalization were reviewed and revised as below. Gen.: Her weight record last admission appears unreliable ranging from 85.729 kilograms to 104.581 kg. Current weight was 94.347 kg in emergency room. Cardiovascular: She has history of hypertension but no [place] heart failure angina DVT or pulmonary embolus Respiratory: As per history of present illness GI: She has had cholecystectomy and appendectomy. 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 Family was unaware she had CK D. There is no history of kidney or bladder disorders otherwise Neurologic: She has been diagnosed with vascular dementia and "mini strokes". She has not had documented large distribution strokes or seizures. Endocrine: She has hypothyroidism and hyperlipidemia but no diabetes. Hematology/oncology: She was diagnosed with breast cancer 2005 and had curative left mastectomy. She was diagnosed with ovarian cancer 2014 and had bilateral oophorectomy followed by XRT. She had previously had KIANA. She has not had other malignancies or anemia documented. Psychiatric: She has anxiety but no significant depression or other mental health issues [place] skeletal: She has DJD but no known gout or other bone joint or muscle disorders. - Constitutional Vitals: Temp Pulse Resp BP Pulse Ox 98.3 F 87 18 115/77 90 07/17/18 11:20 18 11:20 18 11:20 18 11:20 07/17/18 11:20 Exam: Gen.: She is a well-developed overweight female resting comfortably in bed who appears in no acute distress HEENT: Head is atraumatic and normocephalic. Eyes: EOMI. There is no scleral icterus. Mouth: Mucosa is moist. Neck: Supple and nontender. There is no thyromegaly or adenopathy noted. Heart: Regular with occasional ectopic beat. She is asymptomatic. No murmurs or gallops are heard. Lungs: She has mild expiratory wheezing and a few scattered rhonchi in the right lung. The left lung is clear to auscultation. She has egophony in the left posterior upper lung field. Back: Straight without flank tenderness or presacral edema Abdomen: Soft and nontender. No masses or guarding are noted. Extremities: There is no cyanosis or clubbing noted. She has 0 to trace edema bilaterally. She has mild DJD of her hands. Neurologic: Mental status: She is awake and answers questions but is an unreliable historian. She states she is 89 years old. Cranial nerves: Smile is symmetric. Forehead wrinkles bilaterally. Tongue protrudes midline. EOMI. Motor: There is no pronator drift. Cerebellar: Finger to nose is intact bilaterally. Skin: Warm and dry Internal Med - H&P Results - Labs CBC & Chem 7: 07/17/18 05:10 07/17/18 05:10 Labs: Short CBC 07/16/18 07/17/18 Range/Units 17:08 05:10 WBC 6.6 8.8 (4.3-11.1) K/mcL Hgb 14.3 15.4 (11.5-15.4) g/dL Hct 43.1 47.0 H (35.3-44.9) % Plt Count 185 215 (140-400) K/mcL Neutrophils # 4.0 7.9 (1.6-8.9) K/mcL BMP 07/16/18 07/17/18 16:55 05:10 Sodium 138 139 Potassium 3.8 3.8 Chloride 99 101 Carbon Dioxide 31 H 28 BUN 15 23 Creatinine 1.19 1.38 H Glucose 108 H 173 H Calcium 9.6 9.6 Cardiac Enzymes 07/16/18 07/16/18 07/17/18 Range/Units 16:55 23:32 05:10 Troponin I < 0.03 < 0.03 < 0.03 (< 0.04) ng/mL Liver Function 07/16/18 Range/Units 16:55 Total Bilirubin 0.5 (0.3-1.0) mg/dL AST 17 (13-39) Units/L ALT 14 (7-52) Units/L Alkaline Phosphatase 97 (34-104) Units/L Albumin 3.8 (3.5-5.7) g/dL Urine 07/16/18 Range/Units 17:39 Urine Color Yellow (Yellow) Urine Clarity Cloudy A (Clear) Urine pH 7.0 (5.0-8.0) pH Units Ur Specific [place] 1.020 (1.010-1.025) Urine Protein Negative (Neg-Trace) mg/dL Urine Glucose (UA) Normal (Normal) mg/dL - Impressions ITS Impressions Chest X-Ray 07/16/18 16:36 IMPRESSION: Right basilar atelectasis or pneumonia. New elevation of the right hemidiaphragm. Follow-up to resolution recommended to ensure the absence of an underlying pulmonary nodule. D/ / Marshall Schmid MD / Marshall Schmid MD Interpreting Provider: Marshall Schmid MD
[2018-07-17] MEDS ORDERED: Azithromycin 500 MG in D5% in Water 250 ML IVPB SCH (15:00)
[2018-07-17] MEDS ORDERED: cefTRIAXone 1,000 MG in Water for inj. (sterile) 20 ML 10 ML IVP SCH (15:00)
--- NOTE | 2018-07-17 17:09 | Electrocardiograph Report ---
[address] [place], [place] [address] Test Date: 2018-07-16 Pat Name: Nieves Richards Department: [id number] Room: [facility] Gender: F Guest Relations Coordinator: [id number] : 1935 Requested By: Ping Javier Order Number: [id number] Reading MD: Charito Hooker Measurements Intervals [place] Rate: 81 P: 59 MS: 227 QRS: -17 QRSD: 89 T: 161 QT: 340 QTc: 378 Interpretive Statements SINUS RHYTHM WITH FIRST DEGREE AV BLOCK WITH FREQUENT SUPRAVENTRICULAR PREMATURE COMPLEXES MINIMAL VOLTAGE CRITERIA FOR LVH, CONSIDER NORMAL VARIANT ST DEVIATION AND MODERATE T-WAVE ABNORMALITY, CONSIDER ANTERIOR ISCHEMIA Electronically Signed On 07-17-2018 17:08:15 EST by Charito Hooker
[2018-07-17] MEDS: Azithromycin 250 MG TABLET PO SCH (18:44)
[2018-07-17] MEDS: Albuterol 2.5 MG/3 ML NEBULIZER IH PRN (20:53)
[2018-07-17] MEDS: Cefuroxime PO 250 MG TABLET PO SCH (21:04)
[2018-07-17] MEDS: Lactobacillus 1 EACH CAP.SPRINK PO SCH (21:04)
[2018-07-18] MEDS: Albuterol 2.5 MG/3 ML NEBULIZER IH PRN (03:55)
[2018-07-18 05:35] LABS: Basophils # 0.1 K/mcL (0.0-0.2); Basophils % 0.6 %; Eosinophils # 0.1 K/mcL (0.0-0.6); Eosinophils % 0.6 %; Hematocrit 43.4 % (35.3-44.9); Immature Granulocytes % 0.5 % (0-4); Lymphocytes # 2.7 K/mcL (0.6-4.6); Lymphocytes % 21.6 %; Mean Corpuscular HGB Conc 32.3 g/dL (31.6-35.5); Mean Corpuscular Hemoglobin 31.4 pg (28.0-33.3); Mean Corpuscular Volume 97.3 fL (83.0-100.0); Mean Platelet Volume 9.5 fL (9.4-12.4); Monocytes # 0.8 K/mcL (0.0-1.3); Monocytes % 6.1 %; Neutrophils # 8.9 K/mcL (1.6-8.9); Platelet Count 186 K/mcL (140-400); Red Blood Count 4.46 M/mcL (3.82-4.97); Segmented Neutrophils % 70.6 %
[2018-07-18] MEDS: Cefuroxime PO 250 MG TABLET PO SCH (05:59)
[2018-07-18] MEDS: Lactobacillus 1 EACH CAP.SPRINK PO SCH (07:56)
[2018-07-18] MEDS: Aspirin Enteric Coated 81 MG Tablet PO SCH (07:57)
[2018-07-18] MEDS: Azithromycin 250 MG TABLET PO SCH (07:57)
[2018-07-18 08:48] VITALS: BP 123/70
[2018-07-18] MEDS ORDERED: Nicotine 21 MG PATCH.TD24 TD SCH (09:00)
--- NOTE | 2018-07-18 10:26 | Discharge Summary ---
Orders not resulted at time of discharge: Pending orders 07/16/18 17:39 Culture,Urine [RM] Stat Date of Encounter: 07/18/18 Time of Encounter: 10:10 - Discharge Diagnosis (1) Acute bronchitis Priority: Primary Status: Acute Qualifiers: Bronchitis organism: unspecified organism Qualified Code(s): J20.9 - Acute bronchitis, unspecified (2) COPD (chronic obstructive pulmonary disease) Priority: Secondary Status: Chronic Qualifiers: COPD type: unspecified COPD Qualified Code(s): J44.9 - Chronic obstructive pulmonary disease, unspecified (3) Hypoxemia Priority: Secondary Status: Acute (4) Acquired elevated hemidiaphragm Priority: Secondary Status: Acute (5) PAC (premature atrial contraction) Priority: Secondary Status: Acute (6) Hypertension Priority: Secondary Status: Chronic Qualifiers: Hypertension type: essential hypertension Qualified Code(s): I10 - Essential (primary) hypertension (7) CKD (chronic kidney disease) stage 3, GFR 30-59 ml/min Priority: Secondary Status: Chronic (8) Dementia Priority: Secondary Status: Chronic Qualifiers: Dementia type: vascular dementia Dementia behavioral disturbance: without behavioral disturbance Qualified Code(s): F01.50 - Vascular dementia without behavioral disturbance (9) Elevated d-dimer Priority: Secondary Status: Acute Hospital course: Ms. Richards is a 83 year old female who came to emergency room after she develo ped intermittent cold diaphoresis the morning of admission. There was no sensation of fever. She had no complaints of pain. Home health nurse found her heart rate to be irregular ranging from 42-110/m. She was evaluated in emergency room and felt to have possible pneumonia. She was admitted to [facility] floor for ongoing care needs. Initial orders were written by the emergency room physician. I saw her on July 17 and performed a history and physical. She was given Rocephin in emergency room for possible pneumonia. I added Zithromax and lactobacillus. Chest CT was ordered to further evaluate. The chest CT was technically limited by severe respiratory motion. No focal consolidation was seen. Upper abdomen showed no acute pathology. I felt she likely had bronchitis. Urine culture showed gram-negative rods on preliminary report available on day of discharge. I explained to family this could represent asymptomatic bacteriuria since leukocyte esterase was negative and there were 0-3 WBCs on UA. She remained afebrile during her hospital stay with maximum temperature 99 the evening of July 17. On July 18 I felt she was stable for discharge home. She will continue with antibiotics and probiotic for 3 additional days at discharge. I told patient/family that Dr. Cheung could further evaluate her for occasional night sweats that family reports have been present for several weeks. I strongly encouraged her to become a nonsmoker. Room air oximetry will be checked on 6 minute walk prior to discharge. Clonidine was held and blood pressure remained well controlled. Family can continue to monitor blood pressure and discuss restarting medication if elevation occurs. Chest CTA could not be done because of renal insufficiency. There were no clinical findings suggestive of DVT/PE clinically. Previous d-dimer was elevated in 2014. She will continue aspirin for now. Her PCP can monitor and consider VQ scan and/or venous Doppler if further clinical findings suggest DVT/PE. On July 18 she was discharged home. She will follow with her PCP Dr. Carlyle Cheung within 1 week. - Time Spent with Patient Total time spent providing and/or coordinating discharge services: - Discharge Medications Prescriptions: Cefuroxime PO [Ceftin] 500 mg PO Q12HR #6 tablet Azithromycin [Zithromax] 250 mg PO DAILY #3 tablet Lactobacillus [Culturelle] 1 each PO BID #6 cap.sprink Home Medications: Levothyroxine [Synthroid] 88 mcg PO 0630 05/04/15 [History] Paroxetine [Paxil] 20 mg PO DAILY 05/04/15 [History] Pravastatin Sodium [Pravachol] 20 mg PO DAILY 05/04/15 [History] Aspirin [Lo-Dose Aspirin EC] 81 mg PO DAILY 11/01/17 [History] Potassium Chloride 10 meq PO DAILY #30 tab.er.prt 11/02/17 [Rx] Cyanocobalamin (Vitamin B-12) [B-12] 1,000 mcg PO DAILY 12/02/17 [History] Benzonatate [Tessalon] 200 mg PO TID PRN #9 capsule 12/31/17 [Rx] Azithromycin [Zithromax] 250 mg PO DAILY #3 tablet 07/18/18 [Rx] Cefuroxime PO [Ceftin] 500 mg PO Q12HR #6 tablet 07/18/18 [Rx] Lactobacillus [Culturelle] 1 each PO BID #6 cap.sprink 07/18/18 [Rx] Allergies/Adverse Reactions: Allergy/AdvReac Type Severity Reaction Status Date / Time Sulfa (Sulfonamide Allergy Rash Verified 12/30/17 22:14 Antibiotics) Date of admission: 07/16/18 18:10 Primary care physician: Carlyle Cheung MD - Constitutional Vitals: Temp Pulse Resp BP Pulse Ox 98.5 F 70 16 123/70 95 07/18/18 07:15 07/18/18 07:15 07/18/18 07:15 07/18/18 07:15 07/18/18 07:15 - Patient Status Disposition: Home, Self-Care Condition: Good - Discharge Instructions Follow Up With: Carlyle Cheung MD [Primary Care Provider] - 1 week Forms: ED Satisfaction Letter - Diet and Activity Activity: resume usual activities as tolerated Diet: advance to your usual diet
== END 2018-07-18 12:18 | disposition home or self-care (01) ==
LOC: EMEROOPIK 16:32 → INPPIK 16:32
PROVIDERS: ADMIT Internal Medicine; ATTEND Internal Medicine

== ENCOUNTER 2018-09-24 05:50 | Observation (INO) ==
[2018-09-24] MEDS ORDERED: GI Cocktail 40 ML EACH PO ONE (06:13)
--- NOTE | 2018-09-24 06:16 | Emergency Department Note ---
Disposition Clinical Impression: Elevated d-dimer, COPD (chronic obstructive pulmonary disease), Chest pain Disposition: Admitted As Inpatient Condition: Good Referrals: Carlyle Cheung MD [Primary Care Provider] - Forms: ED Satisfaction Letter SOB HPI - General Chief Complaint: ED Shortness of Breath/Dyspnea Stated Complaint: Dyspnea onset this AM Time Seen by Provider: 09/24/18 05:57 Source: patient Mode of arrival: ambulatory Limitations: no limitations Nursing Notes Reviewed: Yes Vital Signs Reviewed: Yes - History of Present Illness 83-year-old female who woke up her family member today to bring her to the emergency room because she was having epigastric abdominal pain radiation towards the chest. Patient states she has nausea but no vomiting denies diarrhea melena hematochezia hematemesis cough cold or flulike symptoms. Patient denies any recent weight gain or weight loss denies any blurred vision double vision loss of vision. Patient states that she feels uncomfortable but can't really describe it she says this pain that radiates towards the arms but not into the arms says she has some shortness of breath she denies burning urgency stinging rash sores lesions patient denies though any additional complaints at this time with complete an entire review of systems Pt Subjective Complaint: shortness of breath, chest pain (/abd(epigastric) pain) Onset (ago): Just [employer] Severity: moderate Consistency/Duration: constant Improves with: nothing Worsens with: nothing Associated symptoms: Reports: chest pain, nausea/vomiting, abdominal pain. Denies: pain with inspiration, fever, cough, wheezing, sputum production, orthopnea, lower extremity pain, polyuria, polydipsia, parasthesias, palpitations, hemoptysis, diaphoresis, syncope, rash, sense of impending doom Treatment prior to arrival: none Cough present: No Sputum production: No - Related Data Home Medications Medication Instructions Recorded Confirmed Levothyroxine [Synthroid] 88 mcg PO 0630 05/04/15 09/24/18 Paroxetine [Paxil] 20 mg PO DAILY 05/04/15 09/24/18 Pravastatin Sodium [Pravachol] 20 mg PO DAILY 05/04/15 09/24/18 Aspirin [Lo-Dose Aspirin EC] 81 mg PO DAILY 11/01/17 09/24/18 Cyanocobalamin (Vitamin B-12) 1,000 mcg PO DAILY 12/02/17 09/24/18 [B-12] Previous Rx's Medication Instructions Recorded Potassium Chloride 10 meq PO DAILY #30 tab.er.prt 11/02/17 Benzonatate [Tessalon] 200 mg PO TID PRN #9 capsule 12/31/17 Azithromycin [Zithromax] 250 mg PO DAILY #3 tablet 07/18/18 Cefuroxime PO [Ceftin] 500 mg PO Q12HR #6 tablet 07/18/18 Lactobacillus [Culturelle] 1 each PO BID #6 cap.sprink 07/18/18 Allergies Allergy/AdvReac Type Severity Reaction Status Date / Time Sulfa (Sulfonamide Allergy Rash Verified 12/30/17 22:14 Antibiotics) All systems ED: reviewed and negative except as stated. Review of Systems: As Per HPI Constitutional: Denies: fever, chills, weakness Eyes: Denies: eye pain, eye discharge ENT ED: Denies: ear pain, throat pain Cardiovascular: Reports: chest pain. Denies: palpitations, dyspnea on exertion Respiratory: Denies: cough, dyspnea, wheezes Gastrointestinal: Reports: abdominal pain, nausea. Denies: vomiting Genitourinary: Denies: urgency, dysuria, frequency Musculoskeletal: Denies: back pain, neck pain Integumentary: Denies: rash, abrasion Neurological: Denies: headache, weakness Psychiatric: Denies: anxiety, depression Endocrine: Denies: fatigue Hematological/Lymphatic: Denies: easy bleeding Allergic/Immunologic: Denies: facial swelling Past Medical History - Past Medical History Attestation: Yes The following information was validated with the patient. Source: patient, old records reviewed, obtained from family, nursing notes reviewed Medical history: Reports: cancer, COPD, dementia, hyperlipidemia, hypertension, renal disease, thyroid disease, TIA, other Surgical history: Reports: appendectomy, breast surgery, cholecystectomy, hysterectomy, other Psychiatric history: Reports: depression - Social History Smoking Status: Former smoker Smokeless Tobacco Status: No Alcohol use: Reports: none Drug use: Reports: none Physical Exam - General Limitations: no limitations General appearance: alert, in no apparent distress, anxious, obese - Head Head exam: atraumatic, normocephalic, normal inspection - Eye Eye exam: Present: normal appearance, PERRL, EOMI - ENT ENT exam: normal exam, normal oropharynx, mucous membranes moist, TM's normal bilaterally, normal external ear exam - Neck Neck exam: Present: normal inspection, full ROM, trachea midline - Chest Chest inspection: Present: normal inspection, symmetric chest wall rise - Respiratory Respiratory exam: Present: normal lung sounds bilaterally - Cardiovascular Cardiovascular exam: Present: regular rate, normal rhythm, normal heart sounds - Abdominal Exam Abdominal exam: Present: soft, Non-Tender, normal bowel sounds. Absent: mass, pulsatile mass - Expanded Upper Extremity Exam Shoulder exam: Present: normal inspection, full ROM Arm exam: Present: normal inspection, full ROM Elbow exam: Present: normal inspection, full ROM Forearm/Wrist exam: Present: normal inspection, full ROM Hand exam: Present: normal inspection, full ROM Vascular exam: Normal: capillary refill, radial pulse - Expanded Lower Extremity Exam Hip/Pelvis exam: Present: normal inspection, full ROM Upper leg exam: Present: normal inspection, full ROM Knee exam: Present: normal inspection, full ROM Lower leg exam: Present: normal inspection, full ROM Ankle exam: Present: normal inspection, full ROM Foot/toe exam: Present: normal inspection, full ROM Neurovascular/Tendon exam: Present: normal capillary refill, normal fine/light touch. Absent: motor deficit, sensory deficit, tendon deficit Gait: observed and normal - Back Exam Back exam: Present: normal inspection, full ROM. Absent: muscle spasm - Neurological Exam Neurological exam: Present: alert, oriented X3, CN II-XII intact, normal gait - Psychiatric Psychiatric exam: Present: normal affect, normal mood - Skin Skin exam: Present: warm, dry, intact, normal color Course Course Narrative: Patient seen and examined laboratory data was ordered as well as CAT scan of the abdomen and chest x-ray because of the pain being within the abdomen and chest region - Reevaluation(s) Reevaluation #1: Have discussed the case with Dr. Croft and he is aware of the findings of the results to this point he is aware that we are waiting for a pulmonary emboli s tudy by CAT scan and if this is negative the patient will be admitted orders will be done by call this CAT scans positive arrangements were made for transfer Vital Signs Temperature 97.1 F L 09/24/18 05:52 Pulse Rate 94 09/24/18 05:52 Respiratory Rate 16 09/24/18 05:52 Blood Pressure 120/76 09/24/18 05:52 O2 Sat by Pulse Oximetry 91 09/24/18 05:52 Temperature 97.1 F L 09/24/18 05:52 Pulse Rate 94 09/24/18 05:52 Respiratory Rate 16 09/24/18 05:52 Blood Pressure 120/76 09/24/18 05:52 O2 Sat by Pulse Oximetry 91 09/24/18 05:52 Oxygen Delivery Oxygen Delivery Room Air Shortness of Breath/Dyspnea - MDM Narrative Medical decision making narrative: Considerations do include pulmonary emboli myocardial infarction GI disturbance or even pulmonary - Differential Diagnosis Likely: acute exacerbation of chronic obstructive airways disease - Medical Records Medical records reviewed: Yes I reviewed the patient's medical records. - Lab Data Lab results reviewed: Yes I reviewed the patient's lab results. Result diagrams: 09/24/18 06:15 09/24/18 06:15 Lab Results 09/24/18 09/24/18 09/24/18 Range/Units 06:15 06:15 06:15 WBC 6.8 (4.3-11.1) K/mcL RBC 4.34 (3.82-4.97) M/mcL Hgb 14.0 (11.5-15.4) g/dL Hct 42.7 (35.3-44.9) % MCV 98.4 (83.0-100.0) fL MCH 32.3 (28.0-33.3) pg MCHC 32.8 (31.6-35.5) g/dL RDW 13.3 (11.5-14.5) % Plt Count 184 (140-400) K/mcL MPV 10.0 (9.4-12.4) fL Immature Gran % 0.3 (0-4) % Seg Neutrophils % 65.1 % Lymphocytes % 19.9 % Monocytes % 10.0 % Eosinophils % 4.0 % Basophils % 0.7 % Neutrophils # 4.4 (1.6-8.9) K/mcL Lymphocytes # 1.4 (0.6-4.6) K/mcL Monocytes # 0.7 (0.0-1.3) K/mcL Eosinophils # 0.3 (0.0-0.6) K/mcL Basophils # 0.1 (0.0-0.2) K/mcL PT (9.4-12.1) Seconds INR APTT 37.8 H (26.0-36.0) Seconds D-Dimer (0-500) ng/mLFEU Sodium 140 (136-145) mEq/L Potassium 3.6 (3.5-5.1) mEq/L Chloride 103 (98-107) mEq/L Carbon Dioxide 32 H (23-29) mEq/L BUN 18 (8-23) mg/dL Creatinine 1.31 H (0.60-1.20) mg/dL Est GFR ( Amer) 47 L (> 60) Est GFR (Non-Af Amer) 39 L (> 60) BUN/Creatinine Ratio 14 (6-26) Glucose 131 H (70-105) mg/dL Calculated Osmolality 294 (280-300) Lactic Acid (0.5-2.2) mmol/L Calcium 9.8 (8.6-10.3) mg/dL Total Bilirubin 0.4 (0.3-1.0) mg/dL AST 16 (13-39) Units/L ALT 14 (7-52) Units/L Alkaline Phosphatase 96 (34-104) Units/L Troponin I (< 0.04) ng/mL B-Natriuretic Peptide (Less than 100) pg/mL Serum Total Protein 6.7 (6.4-8.9) g/dL Albumin 3.7 (3.5-5.7) g/dL Globulin 3.0 (2.4-3.5) g/dL Albumin/Globulin Ratio 1.2 (1.1-2.2) Lipase (11-82) Units/L TSH (0.340-5.600) mcIU/mL 09/24/18 09/24/18 09/24/18 Range/Units 06:15 06:15 06:15 WBC (4.3-11.1) K/mcL RBC (3.82-4.97) M/mcL Hgb (11.5-15.4) g/dL Hct (35.3-44.9) % MCV (83.0-100.0) fL MCH (28.0-33.3) pg MCHC (31.6-35.5) g/dL RDW (11.5-14.5) % Plt Count (140-400) K/mcL MPV (9.4-12.4) fL Immature Gran % (0-4) % Seg Neutrophils % % Lymphocytes % % Monocytes % % Eosinophils % % Basophils % % Neutrophils # (1.6-8.9) K/mcL Lymphocytes # (0.6-4.6) K/mcL Monocytes # (0.0-1.3) K/mcL Eosinophils # (0.0-0.6) K/mcL Basophils # (0.0-0.2) K/mcL PT 12.5 H (9.4-12.1) Seconds INR 1.1 APTT (26.0-36.0) Seconds D-Dimer 1136 H (0-500) ng/mLFEU Sodium (136-145) mEq/L Potassium (3.5-5.1) mEq/L Chloride (98-107) mEq/L Carbon Dioxide (23-29) mEq/L BUN (8-23) mg/dL Creatinine (0.60-1.20) mg/dL Est GFR ( Amer) (> 60) Est GFR (Non-Af Amer) (> 60) BUN/Creatinine Ratio (6-26) Glucose (70-105) mg/dL Calculated Osmolality (280-300) Lactic Acid 1.0 (0.5-2.2) mmol/L Calcium (8.6-10.3) mg/dL Total Bilirubin (0.3-1.0) mg/dL AST (13-39) Units/L ALT (7-52) Units/L Alkaline Phosphatase (34-104) Units/L Troponin I (< 0.04) ng/mL B-Natriuretic Peptide 40 (Less than 100) pg/mL Serum Total Protein (6.4-8.9) g/dL Albumin (3.5-5.7) g/dL Globulin (2.4-3.5) g/dL Albumin/Globulin Ratio (1.1-2.2) Lipase (11-82) Units/L TSH (0.340-5.600) mcIU/mL 09/24/18 Range/Units 06:15 WBC (4.3-11.1) K/mcL RBC (3.82-4.97) M/mcL Hgb (11.5-15.4) g/dL Hct (35.3-44.9) % MCV (83.0-100.0) fL MCH (28.0-33.3) pg MCHC (31.6-35.5) g/dL RDW (11.5-14.5) % Plt Count (140-400) K/mcL MPV (9.4-12.4) fL Immature Gran % (0-4) % Seg Neutrophils % % Lymphocytes % % Monocytes % % Eosinophils % % Basophils % % Neutrophils # (1.6-8.9) K/mcL Lymphocytes # (0.6-4.6) K/mcL Monocytes # (0.0-1.3) K/mcL Eosinophils # (0.0-0.6) K/mcL Basophils # (0.0-0.2) K/mcL PT (9.4-12.1) Seconds INR APTT (26.0-36.0) Seconds D-Dimer (0-500) ng/mLFEU Sodium (136-145) mEq/L Potassium (3.5-5.1) mEq/L Chloride (98-107) mEq/L Carbon Dioxide (23-29) mEq/L BUN (8-23) mg/dL Creatinine (0.60-1.20) mg/dL Est GFR ( Amer) (> 60) Est GFR (Non-Af Amer) (> 60) BUN/Creatinine Ratio (6-26) Glucose (70-105) mg/dL Calculated Osmolality (280-300) Lactic Acid (0.5-2.2) mmol/L Calcium (8.6-10.3) mg/dL Total Bilirubin (0.3-1.0) mg/dL AST (13-39) Units/L ALT (7-52) Units/L Alkaline Phosphatase (34-104) Units/L Troponin I < 0.03 (< 0.04) ng/mL B-Natriuretic Peptide (Less than 100) pg/mL Serum Total Protein (6.4-8.9) g/dL Albumin (3.5-5.7) g/dL Globulin (2.4-3.5) g/dL Albumin/Globulin Ratio (1.1-2.2) Lipase 60 (11-82) Units/L TSH 1.091 (0.340-5.600) mcIU/mL - Radiology Data Radiology results reviewed: Yes I reviewed the patient's radiology results. ITS Impressions Abdomen/Pelvis CT 09/24/18 06:10 IMPRESSION: 1. No acute findings in the abdomen or pelvis. 2. 1.7 cm x 1.6 cm simple appearing left ovarian cystic lesion. Recommend further evaluation with sonography on a nonemergent basis as below. RECOMMENDATIONS: 1.7 cm probably benign ovarian cyst Recommend prompt follow-up with pelvic US. Reference: J Am Earle Radiol 2013;10:675-681 D/ / Calixto Bassett MD / Calixto Bassett MD Interpreting Provider: Calixto Bassett MD Chest X-Ray 09/24/18 06:10 IMPRESSION: No acute cardiopulmonary abnormality. D/ / Calixto Bennett MD / Calixto Bennett MD Interpreting Provider: Calixto Bennett MD - EKG Data EKG attestation: Yes I reviewed and interpreted this EKG. EKG results narrative: s Critical Care Time Critical Care Time: No S.Isaac.Marcello - Jamia.Dary Situation: Demographics, MOA Background: Presenting Complaint, Relevant PMH, Meds, & Allergies Assessment: Vital Signs, Course and respsone to treatment, Exam Concerns, Patient/Family Expectation, Pertinant Lab Results, Outstanding Labs Recommendation: Barrier(s) to disposition, Recommendation based on pending studies, treatments, or consults S.B.A.Pilar Report Given to: Dr Andrea Lopez Repor Time: 08:12 (Pe Study pending)
[2018-09-24 06:50] LABS: Basophils # 0.1 K/mcL (0.0-0.2); Basophils % 0.7 %; Eosinophils # 0.3 K/mcL (0.0-0.6); Hematocrit 42.7 % (35.3-44.9); Immature Granulocytes % 0.3 % (0-4); Lymphocytes # 1.4 K/mcL (0.6-4.6); Lymphocytes % 19.9 %; Mean Corpuscular HGB Conc 32.8 g/dL (31.6-35.5); Mean Corpuscular Hemoglobin 32.3 pg (28.0-33.3); Mean Corpuscular Volume 98.4 fL (83.0-100.0); Monocytes # 0.7 K/mcL (0.0-1.3); Neutrophils # 4.4 K/mcL (1.6-8.9); Platelet Count 184 K/mcL (140-400); Red Blood Count 4.34 M/mcL (3.82-4.97); Red Cell Distribution Width 13.3 % (11.5-14.5); Segmented Neutrophils % 65.1 %
[2018-09-24 06:59] LABS: INR 1.1; Prothrombin Time 12.5 Seconds (9.4-12.1)
[2018-09-24 07:02] LABS: Albumin 3.7 g/dL (3.5-5.7); Albumin/Globulin Ratio 1.2 (1.1-2.2); Bilirubin,Total 0.4 mg/dL (0.3-1.0); Calcium 9.8 mg/dL (8.6-10.3); Lipase 60 Units/L (11-82); Potassium 3.6 mEq/L (3.5-5.1); Total Protein 6.7 g/dL (6.4-8.9)
[2018-09-24 07:04] LABS: Troponin I < 0.03 ng/mL (< 0.04)
[2018-09-24 07:17] LABS: Thyroid Stimulating Hormone 1.091 mcIU/mL (0.340-5.600)
[2018-09-24] MEDS ORDERED: Isovue-370 500 ML BOTTLE IVP ONE ×2 (07:30→11:39)
[2018-09-24] MEDS ORDERED: 0.9 % Sodium Chloride 1,000 ML IVC ONE (07:36)
[2018-09-24] MEDS ORDERED: ISOVUE-370 100 ML INFUS..BTL IVP ONE (07:38)
[2018-09-24] MEDS ORDERED: Ipratropium/Albuterol Neb 3 ML IH SCH ×3 (09:15→12:00)
[2018-09-24] MEDS ORDERED: Naloxone 0.4 MG/ML INJ IVP PRN (11:39)
[2018-09-24] MEDS ORDERED: Benzonatate 100 MG CAPSULE PO PRN (11:39)
[2018-09-24] MEDS: Aspirin Enteric Coated 81 MG Tablet PO SCH (13:01)
[2018-09-24] MEDS: Lactobacillus 1 EACH CAP.SPRINK PO SCH ×2 (13:01→21:47)
[2018-09-24] MEDS: Cyanocobalamin (B-12) 1,000 MCG TABLET PO SCH (13:01)
--- NOTE | 2018-09-24 15:44 | Internal Med History&Physical ---
Date of Encounter: 09/24/18 Time of Encounter: 15:10 Assessment and Plan (1) Dyspnea Current visit: Yes Status: Acute Possible multifactorial etiology including deconditioning and diastolic heart failure. BN peptide was normal. Start low-dose Toprol and Imdur. Room air oximetry previously has shown no need for supplemental oxygen. Qualifiers: Dyspnea type: shortness of breath Qualified Code(s): R06.02 - Shortness of breath; R06.00 - Dyspnea, unspecified; R06.01 - Orthopnea (2) Hypokalemia Current visit: No Status: Chronic Potassium level normal. Continue supplemental potassium. (3) Elevated d-dimer Current visit: Yes Status: Acute Chest CTA showed no evidence of pulmonary embolism. (4) COPD (chronic obstructive pulmonary disease) Current visit: Yes Status: Chronic Start Symbicort. Qualifiers: COPD type: unspecified COPD Qualified Code(s): J44.9 - Chronic obstructive pulmonary disease, unspecified (5) CKD (chronic kidney disease) stage 3, GFR 30-59 ml/min Current visit: No Status: Chronic Status post left nephrectomy. Monitor renal indices. Internal Medicine - H&P: HPI Chief complaint: Dyspnea Admitted From: Emergency Dept Plans for Post Hospital Care: Home History of present illness: Ms. Richards is a 83 year old female who came to emergency room stating she had increasing dyspnea over the past 2 days. She had no significant cough. She describes a sensation of occasional heaviness in her chest. She was evaluated in emergency room and was found to have elevated d-dimer. Chest CTA showed no evidence of pulmonary embolism. She was admitted to [facility] floor for ongoing care needs. She states she feels improved at the present time. She has significant dementia cannot give reliable history. Her respiratory history is significant for having smoked since age 20 until June 2018. She smoked up to 2 packs per day. She has not had PFTs. She does not use home oxygen. She has history of hypertension but no MN heart failure angina DVT or pulmonary embolus. She had echocardiogram 08/09/2018 which showed poor visualization in some views. There was estimated low-normal LV systolic function. The E/A ratio was 0.6 consistent with mild diastolic dysfunction. There is mild aortic regurgitation and mild tricuspid regurgitation. The interventricular septum and posterior wall thickness measurements were 1.23 and 0.92 cm respectively. Past Med Surg Social Fam HX - Past Medical History Medical history: cancer, COPD, dementia, hyperlipidemia, hypertension, renal disease, thyroid disease, TIA, other Additional medical history: Breast 2005 Psychiatric history: depression - Past Surgical History Surgical History: appendectomy, breast surgery, cholecystectomy, hysterectomy, other Additional surgical history: LEFT MASTECTOMY. ABDOMINAL SURGERY. KIDNEY REMOVED - Social History Smoking Status: Former smoker Smokeless Tobacco Status: No Alcohol use: none Drug use: none Internal Medicine - H&P: Meds Levothyroxine [Synthroid] 88 mcg PO 0630 05/04/15 [History] Paroxetine [Paxil] 20 mg PO DAILY 05/04/15 [History] Pravastatin Sodium [Pravachol] 20 mg PO DAILY 05/04/15 [History] Aspirin [Lo-Dose Aspirin EC] 81 mg PO DAILY 11/01/17 [History] Potassium Chloride 10 meq PO DAILY #30 tab.er.prt 11/02/17 [Rx] Cyanocobalamin (Vitamin B-12) [B-12] 1,000 mcg PO DAILY 12/02/17 [History] Benzonatate [Tessalon] 200 mg PO TID PRN #9 capsule 12/31/17 [Rx] Azithromycin [Zithromax] 250 mg PO DAILY #3 tablet 07/18/18 [Rx] Cefuroxime PO [Ceftin] 500 mg PO Q12HR #6 tablet 07/18/18 [Rx] Lactobacillus [Culturelle] 1 each PO BID #6 cap.sprink 07/18/18 [Rx] Allergy/AdvReac Type Severity Reaction Status Date / Time Sulfa (Sulfonamide Allergy Rash Verified 12/30/17 22:14 Antibiotics) All Systems PM: A 10-system review of systems was performed and is negative for pertinent findings except as documented above in the HPI. Review of systems: Review of systems from her June 2018 [facility] hospitalization were reviewed and revised as below. Gen.: Her weight has minimally changed from 94.347 kg on 07/16/2018 to present weight of 96.303 kg. Cardiovascular: As per history of present illness Respiratory: As per history of present illness GI: She has had cholecystectomy and appendectomy. 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 Family was unaware she had CKD. There is no history of kidney or bladder disorders otherwise Neurologic: She has been diagnosed with vascular dementia and "mini strokes". She has not had documented large distribution strokes or seizures. Endocrine: She has hypothyroidism and hyperlipidemia but no diabetes. Hematology/oncology: She was diagnosed with breast cancer 2005 and had curative left mastectomy. She was diagnosed with ovarian cancer 2014 and had right salpingo-oophorectomy. She had previously had KIANA. She has not had other mal ignancies or anemia documented. Psychiatric: She has anxiety but no significant depression or other mental health issues Mus[place] skeletal: She has DJD but no known gout or other bone joint or muscle dis orders. - Constitutional Vitals: Temp Pulse Resp BP Pulse Ox 98.6 F 85 18 129/85 91 09/24/18 11:52 09/24/18 11:52 09/24/18 12:50 09/24/18 11:52 09/24/18 12:50 Exam: Gen.: She is a well-developed overweight female lying in bed who appears in no acute distress at present time HEENT: Head is atraumatic and normocephalic. Eyes: EOMI. There is no scleral icterus. Mouth: Mucosa is moist. Neck: Supple and nontender. There is no thyromegaly or adenopathy noted. Heart: Regular with occasional ectopics heard. Lungs: No wheezes or crackles are heard. Abdomen: Soft and nontender. No masses or guarding are noted. Extremities: There is no cyanosis edema or clubbing noted. Dorsalis pedis and posterior tibial pulses are trace to 1+ palpable bilaterally. Neurologic: Mental status: She is talkative but a fair to poor historian. Cranial nerves: Smile is symmetric. Forehead wrinkles bilaterally. Tongue protrudes midline. EOMI. Motor: There is no pronator drift. Cerebellar: Finger to nose is intact bilaterally. Skin: Warm and dry Internal Med - H&P Results - Labs CBC & Chem 7: 09/24/18 06:15 09/24/18 06:15 Labs: Short CBC 09/24/18 Range/Units 06:15 WBC 6.8 (4.3-11.1) K/mcL Hgb 14.0 (11.5-15.4) g/dL Hct 42.7 (35.3-44.9) % Plt Count 184 (140-400) K/mcL Neutrophils # 4.4 (1.6-8.9) K/mcL BMP 09/24/18 06:15 Sodium 140 Potassium 3.6 Chloride 103 Carbon Dioxide 32 H BUN 18 Creatinine 1.31 H Glucose 131 H Calcium 9.8 Cardiac Enzymes 09/24/18 09/24/18 Range/Units 06:15 12:30 Troponin I < 0.03 < 0.03 (< 0.04) ng/mL Liver Function 09/24/18 Range/Units 06:15 Total Bilirubin 0.4 (0.3-1.0) mg/dL AST 16 (13-39) Units/L ALT 14 (7-52) Units/L Alkaline Phosphatase 96 (34-104) Units/L Albumin 3.7 (3.5-5.7) g/dL - Impressions ITS Impressions Abdomen/Pelvis CT 09/24/18 06:10 IMPRESSION: 1. No acute findings in the abdomen or pelvis. 2. 1.7 cm x 1.6 cm simple appearing left ovarian cystic lesion. Recommend further evaluation with sonography on a nonemergent basis as below. RECOMMENDATIONS: 1.7 cm probably benign ovarian cyst Recommend prompt follow-up with pelvic US. Reference: J Am Earle Radiol 2013;10:675-681 D/ / Calixto Bassett MD / Calixto Bassett MD Interpreting Provider: Calixto Bassett MD Chest X-Ray 09/24/18 06:10 IMPRESSION: No acute cardiopulmonary abnormality. D/ / Calixto Bennett MD / Calixto Bennett MD Interpreting Provider: Calixto Bennett MD Chest CTA 09/24/18 07:30 IMPRESSION: No evidence of pulmonary embolism or acute pulmonary abnormality. D/ / 09/24/2018 08:53:53 Leobardo Ramos MD / min Interpreting Provider: Leobardo Ramos MD
[2018-09-24] MEDS: Budesonide/Formoterol 160/4.5 1 PUFF INH IH SCH ×2 (17:21→22:33)
[2018-09-24] MEDS: Metoprolol XL (24 HR) Succ 25 MG TAB.ER.24H PO SCH (17:35)
[2018-09-24] MEDS: Isosorbide MONOnitrate (24 HR) 30 MG TAB.ER.24H PO SCH (17:35)
[2018-09-24 21:46] LABS: Bilirubin,Urine Negative (Negative); Blood,Urine Negative (Negative); Color,Urine Yellow (Yellow); Glucose,Urine (UA) Normal (Normal); Ketones,Urine Negative (Negative); Leukocyte Esterase,Urine Negative (Negative); Nitrite,Urine Negative (Negative); Protein,Urine Negative (Neg-Trace); Specific Gravity,Urine 1.015 (1.010-1.025); Urobilinogen,Urine Normal (Normal)
[2018-09-24 21:51] LABS: Clarity,Urine Slightly Cloudy (Clear); RBC,Urine 0-3 per hpf (0-3); Squamous Epithelial Cell,Urine Few per lpf (None-Few); WBC,Urine 0-3 per hpf (0-3)
[2018-09-24 21:52] LABS: Bacteria,Urine Moderate per hpf (None-Few); Mucus,Urine Few (Few)
[2018-09-24 21:54] LABS: Amorphous Sediment,Urine Few (Few); Yeast,Urine Few per hpf (None Seen)
[2018-09-25 00:41] LABS: Basophils # 0.1 K/mcL (0.0-0.2); Basophils % 0.8 %; Eosinophils # 0.3 K/mcL (0.0-0.6); Eosinophils % 3.6 %; Hematocrit 38.4 % (35.3-44.9); Hemoglobin 12.3 g/dL (11.5-15.4); Immature Granulocytes % 0.4 % (0-4); Lymphocytes # 1.3 K/mcL (0.6-4.6); Lymphocytes % 17.3 %; Mean Corpuscular Hemoglobin 31.7 pg (28.0-33.3); Mean Platelet Volume 10.1 fL (9.4-12.4); Monocytes # 0.7 K/mcL (0.0-1.3); Monocytes % 9.3 %; Neutrophils # 5.3 K/mcL (1.6-8.9); Platelet Count 165 K/mcL (140-400); Red Blood Count 3.88 M/mcL (3.82-4.97); Red Cell Distribution Width 13.4 % (11.5-14.5); Segmented Neutrophils % 68.6 %
[2018-09-25 01:03] LABS: Potassium 3.8 mEq/L (3.5-5.1)
[2018-09-25 01:04] LABS: Calcium 9.1 mg/dL (8.6-10.3)
[2018-09-25 07:13] VITALS: BP 111/71
[2018-09-25] MEDS: Lactobacillus 1 EACH CAP.SPRINK PO SCH (08:48)
[2018-09-25] MEDS: Metoprolol XL (24 HR) Succ 25 MG TAB.ER.24H PO SCH (08:48)
[2018-09-25] MEDS: Aspirin Enteric Coated 81 MG Tablet PO SCH (08:48)
[2018-09-25] MEDS: Cyanocobalamin (B-12) 1,000 MCG TABLET PO SCH (08:49)
[2018-09-25] MEDS: Isosorbide MONOnitrate (24 HR) 30 MG TAB.ER.24H PO SCH (08:49)
[2018-09-25] MEDS: Budesonide/Formoterol 160/4.5 1 PUFF INH IH SCH (09:35)
--- NOTE | 2018-09-25 09:47 | Discharge Summary ---
Orders not resulted at time of discharge: Pending orders 09/24/18 06:28 Culture,Blood [BC] Stat Date of Encounter: 09/25/18 Time of Encounter: 09:40 - Discharge Diagnosis (1) Dyspnea Priority: Primary Status: Acute Qualifiers: Dyspnea type: shortness of breath Qualified Code(s): R06.02 - Shortness of breath; R06.00 - Dyspnea, unspecified; R06.01 - Orthopnea (2) Hypokalemia Priority: Secondary Status: Chronic (3) Elevated d-dimer Priority: Secondary Status: Acute (4) COPD (chronic obstructive pulmonary disease) Priority: Secondary Status: Chronic Qualifiers: COPD type: unspecified COPD Qualified Code(s): J44.9 - Chronic obstructive pulmonary disease, unspecified (5) CKD (chronic kidney disease) stage 3, GFR 30-59 ml/min Priority: Secondary Status: Chronic Hospital course: Ms. Richards is a 83 year old female who came to emergency room stating she had increasing dyspnea over the past 2 days. She had no significant cough. She describes a sensation of occasional heaviness in her chest. She was evaluated in emergency room and was found to have elevated d-dimer. Chest CTA showed no evidence of pulmonary embolism. She was admitted to [facility] for ongoing care needs. Initial orders were written by the emergency room physician. I saw her on September 24 and performed a history and physical. She was started on low-dose Toprol and Imdur. Symbicort was also added. She felt improved on September 25 and stable for discharge home. She will continue Toprol, Imdur, and Symbicort at discharge. She will follow with her PCP Dr. Carlyle Cheung within 1 week. - Time Spent with Patient Total time spent providing and/or coordinating discharge services: - Discharge Medications Prescriptions: Budesonide/Formoterol 160/4.5 [Symbicort 160/4.5] 2 puff IH BIDR #1 inh Isosorbide MONOnitrate (24 HR) [Imdur] 30 mg PO DAILY #30 tab.er.24h Metoprolol XL (24 HR) Succ [Toprol Xl] 25 mg PO DAILY #30 tab.er.24h Home Medications: Levothyroxine [Synthroid] 88 mcg PO 0630 05/04/15 [History] Paroxetine [Paxil] 20 mg PO DAILY 05/04/15 [History] Pravastatin Sodium [Pravachol] 20 mg PO DAILY 05/04/15 [History] Aspirin [Lo-Dose Aspirin EC] 81 mg PO DAILY 11/01/17 [History] Potassium Chloride 10 meq PO DAILY #30 tab.er.prt 11/02/17 [Rx] Cyanocobalamin (Vitamin B-12) [B-12] 1,000 mcg PO DAILY 12/02/17 [History] Budesonide/Formoterol 160/4.5 [Symbicort 160/4.5] 2 puff IH BIDR #1 inh 09/25/18 [Rx] Isosorbide MONOnitrate (24 HR) [Imdur] 30 mg PO DAILY #30 tab.er.24h 09/25/18 [Rx] Metoprolol XL (24 HR) Succ [Toprol Xl] 25 mg PO DAILY #30 tab.er.24h 09/25/18 [Rx] Allergies/Adverse Reactions: Allergy/AdvReac Type Severity Reaction Status Date / Time Sulfa (Sulfonamide Allergy Rash Verified 12/30/17 22:14 Antibiotics) Date of admission: 09/24/18 09:07 Primary care physician: Carlyle Cheung MD - Constitutional Vitals: Temp Pulse Resp BP Pulse Ox 98.1 F 48 16 111/71 93 09/25/18 07:09 09/25/18 07:09 09/25/18 09:35 09/25/18 07:09 09/25/18 09:35 - Patient Status Disposition: Home, Self-Care Condition: Good - Discharge Instructions Follow Up With: Carlyle Cheung MD [Primary Care Provider] - 1 week - Diet and Activity Activity: resume usual activities as tolerated Diet: advance to your usual diet
--- NOTE | 2018-09-25 10:46 | Physician Discharge Referral ---
Home Health/Hosp Referral Info Transfer to: Home Health Attending Provider: Lang Provider in Charge Post Discharge: PCP (Carlyle Cheung M.D.) - Diagnosis (1) Dyspnea Priority: Primary Status: Acute (2) Hypokalemia Priority: Secondary Status: Chronic (3) Elevated d-dimer Priority: Secondary Status: Acute (4) COPD (chronic obstructive pulmonary disease) Priority: Secondary Status: Chronic (5) CKD (chronic kidney disease) stage 3, GFR 30-59 ml/min Priority: Secondary Status: Chronic - Respiratory Orders Smoking Cessation: Smoking cessation has been advised. For more information, call the [place] Tobacco Quit Line at 1-263-JZIT-NOW. - Diet/Nutrition Diet/Nutrition Orders: Cardiac - Activity Activity Orders: Walker - Services Needed Following services are medically necessary services: Nursing, Home Health Aide, Physical Therapy, Occupational Therapy - Transfer Medications Prescriptions: Budesonide/Formoterol 160/4.5 [Symbicort 160/4.5] 2 puff IH BIDR #1 inh Isosorbide MONOnitrate (24 HR) [Imdur] 30 mg PO DAILY #30 tab.er.24h Metoprolol XL (24 HR) Succ [Toprol Xl] 25 mg PO DAILY #30 tab.er.24h Home Medications: Levothyroxine [Synthroid] 88 mcg PO 0630 05/04/15 [History] Paroxetine [Paxil] 20 mg PO DAILY 05/04/15 [History] Pravastatin Sodium [Pravachol] 20 mg PO DAILY 05/04/15 [History] Aspirin [Lo-Dose Aspirin EC] 81 mg PO DAILY 11/01/17 [History] Potassium Chloride 10 meq PO DAILY #30 tab.er.prt 11/02/17 [Rx] Cyanocobalamin (Vitamin B-12) [B-12] 1,000 mcg PO DAILY 12/02/17 [History] Budesonide/Formoterol 160/4.5 [Symbicort 160/4.5] 2 puff IH BIDR #1 inh 09/25/18 [Rx] Isosorbide MONOnitrate (24 HR) [Imdur] 30 mg PO DAILY #30 tab.er.24h 09/25/18 [Rx] Metoprolol XL (24 HR) Succ [Toprol Xl] 25 mg PO DAILY #30 tab.er.24h 09/25/18 [Rx] Allergies/Adverse Reactions: Allergy/AdvReac Type Severity Reaction Status Date / Time Sulfa (Sulfonamide Allergy Rash Verified 12/30/17 22:14 Antibiotics) Certification: Further, I certify that my clinical findings support that this patient is homebound (i.e. absences from home require considerable and taxing effort and are for medical reasons or episcopal services or infrequently or short duration when for other reasons) because: Homebound Reason: Leaving home requires considerable and taxing effort due to condition (Dyspnea on exertion) Attestation: My signature below is to certify that this patient is under my care and that I, or nurse practitioner, or a physician's patent legal assistant working with me, has a [id number] encounter with this patient.
--- NOTE | 2018-09-25 17:51 | Electrocardiograph Report ---
[place] [id number] Test Date: 2018-09-24 Pat Name: Nieves Richards Department: EDP-12 Room: [facility] Gender: F Pole Tester: : 1935 Requested By: Enid Camarena Order Number: [id number] Reading MD: Angel Benavides Measurements Intervals [place] Rate: 96 P: 14 MS: 222 QRS: 15 QRSD: 90 T: 126 QT: 335 QTc: 424 Interpretive Statements Sinus tachycardia, 1st degree AV block, atrial premature complexes Cannout rule out septal infarct, old Nonspecific T abnormalities, lateral leads Electronically Signed On 09-25-2018 17:49:43 EST by Angel Benavides
--- NOTE | 2018-09-25 18:45 | Electrocardiograph Report ---
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
== END 2018-09-25 11:30 | disposition home or self-care (01) ==
LOC: EMEROOPIK 05:50 → INPPIK 05:50
PROVIDERS: ADMIT Internal Medicine; ATTEND Internal Medicine